=== PATIENT | female | born 1995 | race Caucasian/White ===

== ENCOUNTER → 2020-07-08 | Outpatient (CLI) | payer MEDICAID | END | disposition home or self-care (01) | LOC: LABWHC1 15:49 | PROVIDERS: ATTEND Pediatrics Pediatric Infectious Diseases | DX: Z03.818 Encounter for observation for suspected exposure to other biological agents ruled out (principal) ==

== ENCOUNTER → 2021-10-04 | Outpatient (CLI) | payer MEDICAID, OTHER | END | disposition home or self-care (01) | LOC: LABMAIN 06:04 | PROVIDERS: ATTEND Emergency Medicine | DX: Z20.822 Contact with and (suspected) exposure to COVID-19 (principal) | CPT/HCPCS: 87635 ==

== ENCOUNTER → 2023-12-03 | Outpatient (CLI) | payer MEDICAID ==
[2023-12-03 19:28] LABS: Prolactin 21.4 ng/mL (2.800-29.200)
[2023-12-03 19:38] LABS: Hepatitis B Surface Antigen Nonreactive (Nonreactive); Hepatitis C IgG Antibody Nonreactive (Nonreactive)
[2023-12-03 20:55] LABS: HIV 2 AB Non-Reactive (Non-Reactive); HIV AB P24 Non-Reactive (Non-Reactive); HIV P24 AG Non-Reactive (Non-Reactive)
[2023-12-06 11:36] LABS: HCV Qualitative Result Not detected (Not detected); HCV Quant Log <1.08 (<1.08); HCV Quantitative Result <12 IU/mL (<12)
== END | disposition home or self-care (01) ==
LOC: LABWHC1 15:13
PROVIDERS: ATTEND Obstetrics & Gynecology Reproductive Endocrinology
DX: Z01.812 Encounter for preprocedural laboratory examination (principal)
CPT/HCPCS: 36415; 82306; 82397; 82626; 83036; 83498; 84146; 84402; 84443; 86644; 86645; 86704; 86762; 86787; 86803; 86850; 86900; 86901; 87340; 87390; 87522

== ENCOUNTER → 2024-03-07 | Outpatient (CLI) | payer MEDICAID | END | disposition home or self-care (01) | LOC: LABWHC1 15:45 | PROVIDERS: ATTEND Obstetrics & Gynecology Reproductive Endocrinology | DX: O09.811 Supervision of pregnancy resulting from assisted reproductive technology, first trimester (principal); Z3A.00 Weeks of gestation of pregnancy not specified | CPT/HCPCS: 36415; 82670; 84144; 84443; 84702 ==

== ENCOUNTER → 2024-03-09 | Outpatient (CLI) | payer MEDICAID | END | disposition home or self-care (01) | LOC: LABWHC1 12:13 | PROVIDERS: ATTEND Obstetrics & Gynecology Reproductive Endocrinology | DX: Z32.00 Encounter for pregnancy test, result unknown (principal); O09.811 Supervision of pregnancy resulting from assisted reproductive technology, first trimester | CPT/HCPCS: 36415; 82670; 84144; 84702 ==

== ENCOUNTER → 2024-03-15 | Outpatient (CLI) | payer MEDICAID | END | disposition home or self-care (01) | LOC: LABWHC1 08:42 | PROVIDERS: ATTEND Obstetrics & Gynecology Reproductive Endocrinology | DX: Z01.812 Encounter for preprocedural laboratory examination (principal) | CPT/HCPCS: 36415; 82670; 84144; 84702 ==

== ENCOUNTER → 2024-06-09 | Outpatient (CLI) | payer MEDICAID ==
[2024-06-09 11:09] LABS: ALT 17 U/L (8-44); AST 17 U/L (13-35); Albumin 4.5 g/dL (3.8-4.9); Albumin/Globulin Ratio 1.73 Ratio (1.60-3.17); Alkaline Phosphatase 51 U/L (41-126); Calcium 9.5 mg/dL (8.7-10.3); Carbon Dioxide 22.5 mmol/L (21.6-31.8); Chloride 106 mmol/L (96-109); Chol/HDL Ratio 4.41 Ratio; Globulin 2.6 g/dL (1.6-3.3); Glucose 94 mg/dL (70-110); LDL Cholesterol,Calculated 128.8 mg/dL (0.0-131.0); Potassium 4.6 mmol/L (3.5-5.5); Sodium 142 mmol/L (135-145); Total Bilirubin 0.3 mg/dL (0.3-1.2); Total Protein 7.1 g/dL (6.2-8.2)
== END ==
LOC: LABWHC1 07:38
DX: Z00.00 Encounter for general adult medical examination without abnormal findings
CPT/HCPCS: 36415; 80053; 80061; 83036; 84443

== ENCOUNTER → 2024-10-14 | Outpatient (CLI) | payer MEDICAID ==
--- NOTE | 2024-10-16 07:15 | MR ---
EXAMINATION TYPE: MR knee RT wo con DATE OF EXAM: 10/14/2024 COMPARISON: Outside right knee x-ray October 13, 2024 HISTORY: Right knee pain, heard pop when squatting 2 days ago. TECHNIQUE: Multiplanar, multisequence images of the knee is performed without IV contrast. FINDINGS: MEDIAL MENISCUS: Anterior and posterior horns are intact without tear. LATERAL MENISCUS: Blunting of the posterior horn with abnormal signal extending to articular surface. CRUCIATE LIGAMENTS: The posterior cruciate ligament is intact and unremarkable. Abnormal anterior cru ciate ligament with irregular wavy course. COLLATERAL LIGAMENTS: The lateral collateral ligament complex is intact and unremarkable. Increased f luid signal surrounding collateral ligament with partial tear involving the proximal posterior fibers . EXTENSOR MECHANISM: Visualized quadriceps and patellar tendons are intact. EFFUSION: Small size suprapatellar joint effusion. POPLITEAL CYST: Large size leaking popliteal/andre cyst extending inferiorly. TRICOMPARTMENT SPACES: Mild to moderate narrowing medial tibiofemoral and patellofemoral compartments . Mild spurring patellofemoral compartment. CARTILAGE: Tricompartmental articular cartilage is preserved. BONE MARROW SIGNAL: No focal abnormal marrow signal is appreciated. OTHER: No additional significant abnormality is appreciated. IMPRESSION: 1. Complete ACL tear. 2. Partial MCL tear. 3. Full-thickness tear posterior horn of lateral meniscus. 4. Large leaking popliteal cyst. 5. Small-size suprapatellar joint effusion. 6. Mild tricompartment degenerative changes are present as detailed above. [facility], Workstation: 3, 10/16/2024 7:12 AM
== END | disposition home or self-care (01) ==
LOC: RADMRIMAIN 09:03
PROVIDERS: ATTEND Orthopaedic Surgery
DX: S83.411A Sprain of medial collateral ligament of right knee, initial encounter (principal); S83.511A Sprain of anterior cruciate ligament of right knee, initial encounter; S83.281A Other tear of lateral meniscus, current injury, right knee, initial encounter; M17.11 Unilateral primary osteoarthritis, right knee; M71.21 Synovial cyst of popliteal space [Baker], right knee; X58.XXXA Exposure to other specified factors, initial encounter